=== PATIENT | male | born 1930 | race Caucasian/White ===

== ENCOUNTER 2017-02-21 06:51 | Emergency (ER) | payer OTHER ==
[~2017-02-21] VITALS: Ht 170.2 cm; Wt 54.3 kg
[~2017-02-21 06:51] MED LIST: ASPIRIN81 M2 PO; AVODART0.5 MG PO; CRESTOR10 MG PO; HYDROCHLOROTHIA25 MG PO; HYDROCODON-ACE1 EAC7 PO; KLOR-CON M2020 MEQ PO; LASIX40 MG PO; LISINOPRIL2.5 MG PO; LOPID600 MG PO; LOPRESSOR50 MG PO; PLAVIX75 MG PO; PROSCAR5 MG PO; SAVAYSA30 MG PO; VITAMIN B12-FO1 EACH PO; VITAMIN E400 UNI6 PO; XARELTO15 MG PO; ZETIA10 MG PO
[2017-02-21] MEDS ORDERED: TRAMADOL HCL50 MG PO (09:59)
[2017-02-21] MEDS ORDERED: LIDODERM 5% P1 PATCH TD (09:59)
[2017-02-21 11:32] VITALS: BP 136/73
== END 2017-02-21 11:34 | disposition home or self-care (01) ==
LOC: EME 06:51
DX: S80.811A Abrasion, right lower leg, initial encounter (principal); W06.XXXA Fall from bed, initial encounter; Y92.003 Bedroom of unspecified non-institutional (private) residence as the place of occurrence of the external cause; M25.511 Pain in right shoulder; I10 Essential (primary) hypertension; E78.5 Hyperlipidemia, unspecified; I73.9 Peripheral vascular disease, unspecified; Z60.2 Problems related to living alone; F17.200 Nicotine dependence, unspecified, uncomplicated; Z95.0 Presence of cardiac pacemaker; Z79.02 Long term (current) use of antithrombotics/antiplatelets; Z79.891 Long term (current) use of opiate analgesic; Z91.81 History of falling
CPT/HCPCS: 73590; 93971; 99281; 99284

== ENCOUNTER 2017-02-26 07:03 | Inpatient (IN) | payer OTHER ==
[~2017-02-26] VITALS: Ht 167.6 cm; Wt 55.0 kg
[~2017-02-26 07:03] MED LIST changes: +LIDODERM 5% P1 PATCH TD; +TRAMADOL HCL50 MG PO
[2017-02-26 08:25] LABS: EOSINOPHIL (%) 0.3 % (0-5); HEMATOCRIT 43.8 % (38.0-50.0); IMMATURE GRANULOCYTE (%) 0.3 % (0.0-0.7); INSTRUMENT ABS NEUTROPHIL CT 6.2 K/uL; LYMPHOCYTE COUNT 0.7 K/uL (1.0-2.8); MCH 31.8 PG (29.0-34.0); MCHC 32.4 G/DL (30.0-36.0); MEAN PLAT.VOLUME 11.6 uM^3 (9.0-12.4); MONOCYTE (%) 11.3 % (3-12); MONOCYTE COUNT 0.9 K/uL (0-0.8); NEUTROPHIL (%) 78.5 % (45-76); NEUTROPHIL COUNT 6.2 K/uL (1.8-6.4); PLATELET COUNT 164 K/uL (156-360); RBC DIS.WIDTH-CV 13.4 % (11.8-14.6); RBC DIS.WIDTH-SD 48.6 % (39-53); RED BLOOD COUNT 4.47 M/uL (4.00-5.50); WHITE BLOOD COUNT 7.9 K/uL (4.1-10.2)
[2017-02-26 08:35] LABS: INTER. NORMALIZED RATIO 1.1; PROTHROMBIN TIME 10.7 (9.2-11.2)
[2017-02-26 11:05] LABS: CHLORIDE 110 mEq/L (99-109); POTASSIUM 3.7 mEq/L (3.7-5.4); SODIUM 141 mEq/L (136-147)
[2017-02-26 11:07] LABS: GLUCOSE 139 mg/dL (70-99)
[2017-02-26 11:08] LABS: ANION GAP 10 MEQ/L (2-14)
[2017-02-26 11:09] LABS: TOTAL BILIRUBIN 0.5 mg/dL (0.0-1.0)
[2017-02-26 11:10] LABS: ALKALINE PHOSPHATASE 78 IU/L (3-129)
[2017-02-26 11:11] LABS: GFR ESTIMATE (CALCULATED) 34 mL/min/
[2017-02-26 11:12] LABS: UREA NITROGEN (BUN) 42 mg/dL (9-23)
[2017-02-26 11:13] LABS: ADD MIUA? YES; BILIRUBIN NEGATIVE; BLOOD NEGATIVE; COLOR YELLOW ((YELLOW)); GLUCOSE (STRIP) 50; KETONES NEGATIVE; LEUKOCYTES SMALL; NITRITE NEGATIVE; PROTEIN (STRIP) 100; SPECIFIC GRAVITY 1.014 (1.000-1.030); UROBILINOGEN 0.2 MG/DL (0.2-1.0)
[2017-02-26 11:15] LABS: TROP-I INTERPRETATION INDETERMINATE; TROPONIN-I 0.51 ng/mL (0.0-0.30)
[2017-02-26 11:24] LABS: BACTERIA RARE /HPF; EPITHELIAL CELLS RARE /HPF; MUCUS TRACE /LPF; RED BLOOD CELLS 0-5 /HPF (0-5); UCUL ADDED? NO; WHITE BLOOD CELLS 30-40 /HPF (0-5)
[2017-02-26 14:09] VITALS: BP 176/87
[2017-02-26] MEDS ORDERED: FUROSEMIDE40 MG PO (16:20)
[2017-02-26] MEDS ORDERED: RANITIDINE HCL150 MG PO (16:22)
[2017-02-26] MEDS ORDERED: ANORO ELLIPTA1 EACH IH (16:22)
[2017-02-26] MEDS ORDERED: 24HOUR ALLERGY10 MG PO (16:22)
[2017-02-26] MEDS ORDERED: FERROUS SULFAT325 MG PO (16:22)
[2017-02-26 17:12] VITALS: BP 110/80
[2017-02-26 17:27] VITALS: BP 110/80
[2017-02-26 20:08] LABS: TROP-I INTERPRETATION POSITIVE; TROPONIN-I 0.62 ng/mL (0.0-0.30)
[2017-02-26 20:18] LABS: Estimated Average Glucose 151 mg/dL (70-123); HEMOGLOBIN A1c (GLYCOHEMOGLOB) 6.9 % HGB (Below 5.7)
[2017-02-26 20:25] VITALS: BP 88/50
[2017-02-26 22:40] VITALS: BP 94/51
[2017-02-27 02:53] VITALS: BP 115/56
[2017-02-27 05:51] LABS: ANION GAP 7 MEQ/L (2-14); CHLORIDE 112 MEQ/L (99-109); GFR ESTIMATE (CALCULATED) 34 mL/min/; GLUCOSE 128 mg/dL (70-99); POTASSIUM 3.3 MEQ/L (3.7-5.4); SAMPLE HEMOLYSIS CHECK 0; SAMPLE ICTERIC CHECK 0; SAMPLE LIPEMIA CHECK 0; SODIUM 143 MEQ/L (136-147); UREA NITROGEN (BUN) 55 mg/dL (9-23)
[2017-02-27 06:15] LABS: TROP-I INTERPRETATION POSITIVE; TROPONIN-I 0.71 ng/mL (0.0-0.30)
[2017-02-27 06:44] LABS: HEMATOCRIT 35.4 % (38.0-50.0); MCH 32.4 PG (29.0-34.0); MCHC 32.5 G/DL (30.0-36.0); MCV 99.7 FL (86-99); MEAN PLAT.VOLUME 12.4 uM^3 (9.0-12.4); PLATELET COUNT 158 K/uL (156-360); RBC DIS.WIDTH-CV 13.6 % (11.8-14.6); RBC DIS.WIDTH-SD 50.3 % (39-53); WHITE BLOOD COUNT 5.4 K/uL (4.1-10.2)
[2017-02-27 06:45] LABS: RED BLOOD COUNT 3.55 M/uL (4.00-5.50)
[2017-02-27 09:24] VITALS: BP 121/79
[2017-02-27 13:36] VITALS: BP 128/70
[2017-02-27 17:00] VITALS: BP 131/64
[2017-02-27 20:55] VITALS: BP 116/60
[2017-02-28] VITALS (7 sets, daily range): BP systolic 89–126; BP diastolic 50–58
[2017-02-28 05:56] LABS: EOSINOPHIL (%) 0.2 % (0-5); HEMATOCRIT 33.7 % (38.0-50.0); IMMATURE GRANULOCYTE (%) 0.5 % (0.0-0.7); INSTRUMENT ABS NEUTROPHIL CT 5.3 K/uL; LYMPHOCYTE COUNT 0.5 K/uL (1.0-2.8); MCH 31.6 PG (29.0-34.0); MCV 98.5 FL (86-99); MEAN PLAT.VOLUME 11.9 uM^3 (9.0-12.4); MONOCYTE (%) 10.6 % (3-12); MONOCYTE COUNT 0.7 K/uL (0-0.8); NEUTROPHIL (%) 81.4 % (45-76); NEUTROPHIL COUNT 5.3 K/uL (1.8-6.4); PLATELET COUNT 141 K/uL (156-360); RBC DIS.WIDTH-CV 13.8 % (11.8-14.6); RBC DIS.WIDTH-SD 50.4 % (39-53); RED BLOOD COUNT 3.42 M/uL (4.00-5.50); WHITE BLOOD COUNT 6.5 K/uL (4.1-10.2)
[2017-02-28 06:29] LABS: ANION GAP 7 MEQ/L (2-14); CHLORIDE 116 MEQ/L (99-109); GFR ESTIMATE (CALCULATED) 32 mL/min/; GLUCOSE 133 mg/dL (70-99); SAMPLE HEMOLYSIS CHECK 0; SAMPLE ICTERIC CHECK 0; SAMPLE LIPEMIA CHECK 0; SODIUM 145 MEQ/L (136-147); UREA NITROGEN (BUN) 58 mg/dL (9-23)
[2017-03-01 04:00] VITALS: BP 112/57
[2017-03-01 07:27] VITALS: BP 115/55
[2017-03-01 10:44] VITALS: BP 123/68
[2017-03-01 19:56] VITALS: BP 00/00
== END 2017-03-01 18:10 | DRG 543 ==
LOC: EME 07:03 → EDOF 12:38 → 4EAST 12:38 → 5EAST 03-01 16:57
PROVIDERS: Emergency Medicine; Family Medicine
PROC: 0T9B70Z Drainage of Bladder with Drainage Device, Via Natural or Artificial Opening (ICD-10-PCS; principal; 2017-02-27)
DX: M84.48XA Pathological fracture, other site, initial encounter for fracture (principal); C41.2 Malignant neoplasm of vertebral column; N13.8 Other obstructive and reflux uropathy; N30.00 Acute cystitis without hematuria; M48.00 Spinal stenosis, site unspecified; M47.9 Spondylosis, unspecified; E11.22 Type 2 diabetes mellitus with diabetic chronic kidney disease; N40.1 Benign prostatic hyperplasia with lower urinary tract symptoms; I13.0 Hypertensive heart and chronic kidney disease with heart failure and stage 1 through stage 4 chronic kidney disease, or unspecified chronic kidney disease; E11.42 Type 2 diabetes mellitus with diabetic polyneuropathy; I48.0 Paroxysmal atrial fibrillation; N18.4 Chronic kidney disease, stage 4 (severe); J44.9 Chronic obstructive pulmonary disease, unspecified; E78.5 Hyperlipidemia, unspecified; D63.8 Anemia in other chronic diseases classified elsewhere; I25.119 Atherosclerotic heart disease of native coronary artery with unspecified angina pectoris; E86.0 Dehydration; N36.5 Urethral false passage; M15.9 Polyosteoarthritis, unspecified; I50.42 Chronic combined systolic (congestive) and diastolic (congestive) heart failure; L89.309 Pressure ulcer of unspecified buttock, unspecified stage; R62.7 Adult failure to thrive; R64 Cachexia; I73.9 Peripheral vascular disease, unspecified; Z68.1 Body mass index [BMI] 19.9 or less, adult; G82.50 Quadriplegia, unspecified; E11.51 Type 2 diabetes mellitus with diabetic peripheral angiopathy without gangrene; Z51.5 Encounter for palliative care; F17.210 Nicotine dependence, cigarettes, uncomplicated; Z95.0 Presence of cardiac pacemaker; Z95.5 Presence of coronary angioplasty implant and graft; Z91.19 Patient's noncompliance with other medical treatment and regimen; Z91.81 History of falling; Z87.442 Personal history of urinary calculi; Z79.4 Long term (current) use of insulin; Z85.51 Personal history of malignant neoplasm of bladder; Z79.02 Long term (current) use of antithrombotics/antiplatelets; Z79.01 Long term (current) use of anticoagulants
CPT/HCPCS: 70450; 71010; 72125; 72131; 80048; 80053; 81003; 83036; 84484; 85025; 85027; 85610; 87086; 93005; 93306; 94640 76; 99281; 99285; C1769; J0696; J1644; J2060; J2270; J3480; J7030; J7050; Q0177

== ENCOUNTER 2017-03-01 19:24 | Inpatient (IN) | payer OTHER ==
[~2017-03-01 19:24] MED LIST changes: +24HOUR ALLERGY10 MG PO; +ANORO ELLIPTA1 EACH IH; +FERROUS SULFAT325 MG PO; +FUROSEMIDE40 MG PO; +RANITIDINE HCL150 MG PO
[2017-03-02 07:24] VITALS: BP 136/86
[2017-03-02 15:51] VITALS: BP 150/82
== END 2017-03-02 16:00 | DRG 542 ==
LOC: 5EAST 19:24
DX: C79.51 Secondary malignant neoplasm of bone (principal); G82.50 Quadriplegia, unspecified; G95.89 Other specified diseases of spinal cord; E11.22 Type 2 diabetes mellitus with diabetic chronic kidney disease; I49.5 Sick sinus syndrome; I50.9 Heart failure, unspecified; M84.58XA Pathological fracture in neoplastic disease, other specified site, initial encounter for fracture; E86.0 Dehydration; N39.0 Urinary tract infection, site not specified; I48.91 Unspecified atrial fibrillation; I73.9 Peripheral vascular disease, unspecified; E78.5 Hyperlipidemia, unspecified; I25.10 Atherosclerotic heart disease of native coronary artery without angina pectoris; J44.9 Chronic obstructive pulmonary disease, unspecified; C80.1 Malignant (primary) neoplasm, unspecified; M15.9 Polyosteoarthritis, unspecified; N18.3 Chronic kidney disease, stage 3 (moderate); N40.1 Benign prostatic hyperplasia with lower urinary tract symptoms; R33.8 Other retention of urine; Z51.5 Encounter for palliative care; F17.210 Nicotine dependence, cigarettes, uncomplicated; Z95.0 Presence of cardiac pacemaker; Z95.5 Presence of coronary angioplasty implant and graft; R29.6 Repeated falls; D63.8 Anemia in other chronic diseases classified elsewhere; Z85.51 Personal history of malignant neoplasm of bladder; H04.123 Dry eye syndrome of bilateral lacrimal glands; J34.89 Other specified disorders of nose and nasal sinuses; R41.0 Disorientation, unspecified; Z66 Do not resuscitate
CPT/HCPCS: J2060; J2270